=== PATIENT | male | born 1975 | race Caucasian/White ===

== ENCOUNTER → 2024-09-30 10:26 | Outpatient (BNVA) | payer OTHER, SELFPAY | PROVIDERS: Family Provider Electrodiagnostic Medicine; PCP Family Medicine; Visit Provider Family Medicine | DX: Z00.00 Encounter for general adult medical examination without abnormal findings (principal); Z12.5 Encounter for screening for malignant neoplasm of prostate; Z13.1 Encounter for screening for diabetes mellitus; E55.9 Vitamin D deficiency, unspecified; Z51.81 Encounter for therapeutic drug level monitoring; E03.9 Hypothyroidism, unspecified; Z13.6 Encounter for screening for cardiovascular disorders | CPT/HCPCS: 80053; 80061; 82306; 83036; 84153; 84439; 84443; 85025 ==

== ENCOUNTER 2024-12-09 05:53 | Day surgery (SDC) | payer OTHER, SELFPAY ==
[2024-12-09 06:10] VITALS: BP 100/66; PULSE 76; RESP 18; TEMP 36.1; O2SAT 96; BMI 32.5
--- NOTE | 2024-12-09 06:22 | W.PM.OPSFHP ---
Same Day Surgery H&P Indication for Procedure/HPI DATE OF PROCEDURE: December 09, 2024 CHIEF COMPLAINT/INDICATIONFOR SURGICAL PROCEDURE: need for screening colonoscopy PREOP DIAGNOSIS: need for screening colonoscopy PLANNED PROCEDURE: Operation Date: 12/09/24 07:00 Proposed Procedures p Colonoscopy [id number] G0121, Z12.11(Not Applicable) - Noah Grace MD Medications/Allergies* Home Medications ?Medication ?Instructions ?Recorded ?Confirmed ?Type fexofenadine 180 mg tablet 180 mg PO DAILY 09/30/24 12/06/24 History (Paola Allergy) cholecalciferol (vitamin D3) 10 10 mcg PO DAILY 10/26/24 12/06/24 History mcg (400 unit) capsule omega-3 fatty acids [Fish Oil] 300 mg PO DAILY 10/26/24 12/06/24 History magnesium 200 mg tablet 200 mg PO DAILY 12/06/24 12/06/24 History Allergies/Adverse Reactions Allergy/AdvReac Type Severity Reaction Status Date / Time gluten Allergy Severe Unknown Verified 10/26/24 10:05 Pertinent History/Comorbid Conditions* Surgical History (Updated 11/29/24 @ 18:55 by Byron King MD) Hx of removal of cyst Upper central abdomen - 2024 Family History (Updated 09/30/24 @ 10:00 by Byron King MD) Mother, of cancer 2 weeks after diagnosis. Unsure of initial cancer. Possibly uterine cancer. Diabetes mellitus, type 2 Father Prediabetes Brother Social History Smoking and tobacco/nicotine status: never used tobacco/nicotine Alcohol intake: current Alcohol intake frequency: 0-2 Drinks per Day Alcohol type: wine Substance/Drug Use: never Current occupation: Self employed - Janitorial service in [employer] Pertinent Exam Findings alert, oriented x 3, clear to auscultation bilaterally and regular rate & rhythm Recommendations Surgery/Procedure today Coding Level of Care Code Acute Code for Chg Fwd
--- NOTE | 2024-12-09 06:32 | ANES.PREANE2 ---
Pre-Anesthetic Assessment Height/Weight: Height 1.83 m Weight 108.862 kg Temp Pulse Resp BP Pulse Ox O2 Del Method 97 F L 76 18 100/66 96 Room Air 12/09/24 06:10 12/09/24 06:10 12/09/24 06:10 12/09/24 06:10 12/09/24 06:10 12/09/24 06:10 Preop Diagnosis: need for screening colonoscopy Operation Date: 12/09/24 07:00 Proposed Procedures p Colonoscopy [id number] G0121, Z12.11(Not Applicable) - Noah Grace MD Familial anesthetic complications: Never had anesthesia, no known family complications Was Beta Yung taken within 24 hours: N/A Was Clonidine taken within 24 hours: N/A Last intake: Intake Last Liquid Date 12/08/24 Last Liquid Time 21:00 Last Solid Date 12/07/24 Last Solid Time 20:00 Social Alcohol (Social) and No tobacco Exam alert, oriented x 3, clear to auscultation bilaterally and regular rate & rhythm Airway Submandibular: within normal limits Cervical ROM: within normal limits Mallampati: Class II Dentition: full History/ROS No significant history except as noted and No significant complaints Pulmonary None reported CV/HEM None reported None reported Hx kidney stones Hepatic None reported GI Gastroesophageal Reflux Disease (Occ., nothing this morning) and Peptic Ulcer Disease (Found in the , no issues since) Metabolic None reported Musc/skel None reported Neuropsych None reported Anesthetic Plan ASA status: 2 Anesthesia: Anesthesia Evaluation Other: No blood Risk of > 500 ml blood loss (7ml/kg in children): No Medications/Allergies Home Medications ?Medication ?Instructions ?Recorded ?Confirmed ?Last Taken ?Type fexofenadine 180 mg tablet 180 mg PO DAILY 09/30/24 12/06/24 12/08/24 History (Paola Allergy) cholecalciferol (vitamin D3) 10 10 mcg PO DAILY 10/26/24 12/06/24 12/08/24 History mcg (400 unit) capsule omega-3 fatty acids [Fish Oil] 300 mg PO DAILY 10/26/24 12/06/24 12/08/24 History magnesium 200 mg tablet 200 mg PO DAILY 12/06/24 12/06/24 12/08/24 History Allergies Allergy/AdvReac Type Severity Reaction Status Date / Time gluten Allergy Severe Unknown Verified 10/26/24 10:05 Current Medications Generic Name Dose Route Start Last Admin Trade Name Jessa PRN Reason Stop Dose Admin Sodium Chloride 1,000 mls @ 30 mls/hr 12/09/24 06:00 12/09/24 06:23 Sodium Chloride 0.9% IV 12/10/24 05:59 30 mls/hr .Q24H MERCEDES Administration PFSH Anesthesia Surgical History (Updated 11/29/24 @ 18:55 by Byron King MD) Hx of removal of cyst Upper central abdomen - 2024 Family History Father Diabetes mellitus, type 2 Brother Prediabetes Mother , of cancer 2 weeks after diagnosis. Unsure of initial cancer. Possibly uterine cancer. No problems noted. Social History Smoking and tobacco/nicotine status: never used tobacco/nicotine Alcohol intake: current Alcohol intake frequency: 0-2 Drinks per Day Alcohol type: wine Substance/Drug Use: never Current occupation: Self employed - Janitorial service in [employer]
--- NOTE | 2024-12-09 07:08 | PC.NURSE ---
[facility] [id number]
[2024-12-09 07:28] VITALS: BP 113/74; PULSE 70; RESP 16; TEMP 36.1; O2SAT 94
[2024-12-09 07:50] VITALS: PULSE 74; RESP 17; TEMP 36.1; O2SAT 97
--- NOTE | 2024-12-09 08:00 | ANE.PACU2 ---
Inpatient post-anesthesia follow up: Airway intact: Yes Vital signs: Temperature 97 F Pulse Rate 74 Respiratory Rate 17 Blood Pressure 113/74 Pulse Oximetry 97 Oxygen Delivery Me thod Room Air Oxygen Flow Rate Fraction of Inspir ed Oxygen Hydration adequate: Yes Nausea and vomiting: No Pain level: 1 Mental status: Baseline
== END 2024-12-09 08:00 | disposition home or self-care (01) ==
PROVIDERS: PCP Family Medicine; Visit Provider Surgery
PROC: 0DJD8ZZ Inspection of Lower Intestinal Tract, Via Natural or Artificial Opening Endoscopic (ICD-10-PCS; CPT 45378; principal; 2024-12-09 07:00)
DX: Z12.11 Encounter for screening for malignant neoplasm of colon (principal); K57.30 Diverticulosis of large intestine without perforation or abscess without bleeding; K62.1 Rectal polyp; K21.9 Gastro-esophageal reflux disease without esophagitis; K27.9 Peptic ulcer, site unspecified, unspecified as acute or chronic, without hemorrhage or perforation
CPT/HCPCS: 45380; 88305; J2704; J7030

== ENCOUNTER 2025-01-24 05:46 | Day surgery (SDC) | payer OTHER, SELFPAY ==
[2025-01-24] VITALS (12 sets, daily range): BP systolic 107–152; BP diastolic 66–88; PULSE 69–98; RESP 12–19; TEMP 36.1–36.3; O2SAT 94–99; BMI 32.1
--- NOTE | 2025-01-24 06:46 | W.PM.OPSFHP ---
Same Day Surgery H&P Indication for Procedure/HPI DATE OF PROCEDURE: January 24, 2025 CHIEF COMPLAINT/INDICATIONFOR SURGICAL PROCEDURE: Posterior neck cyst PREOP DIAGNOSIS: neck cyst PLANNED PROCEDURE: Operation Date: 01/24/25 07:00 Proposed Procedures p Excision Subcutaneous Neck Mass 04850 L72.3(Left) - Noah Grace MD Medications/Allergies* Home Medications ?Medication ?Instructions ?Recorded ?Confirmed ?Type fexofenadine 180 mg tablet 180 mg PO DAILY 09/30/24 01/24/25 History (Paola Allergy) cholecalciferol (vitamin D3) 10 10 mcg PO DAILY 10/26/24 01/24/25 History mcg (400 unit) capsule omega-3 fatty acids [Fish Oil] 300 mg PO DAILY 10/26/24 01/24/25 History magnesium 200 mg tablet 200 mg PO DAILY 12/06/24 01/24/25 History creatine monohydrate 1 ea PO PRN 01/20/25 01/24/25 History Allergies/Adverse Reactions Allergy/AdvReac Type Severity Reaction Status Date / Time gluten Allergy Severe Unknown Verified 01/24/25 06:06 Current Medications: Generic Name Dose Route Start Last Admin Trade Name Freq PRN Reason Stop Dose Admin Sodium Chloride 1,000 mls @ 30 mls/hr 01/24/25 06:15 01/24/25 06:16 Sodium Chloride 0.9% IV 01/25/25 06:14 30 mls/hr .Q24H MERCEDES Administration Pertinent History/Comorbid Conditions* Surgical History (Updated 11/29/24 @ 18:55 by Byron iKng MD) Hx of removal of cyst Upper central abdomen - 2024 Family History (Updated 09/30/24 @ 10:00 by Byron King MD) Mother, of cancer 2 weeks after diagnosis. Unsure of initial cancer. Possibly uterine cancer. 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 after discussion with patient he wants to proceed with excision to prevent further episodes of infection. Coding Level of Care Code Acute Code for Chg Fwcatarina
--- NOTE | 2025-01-24 06:59 | ANES.PREANE2 ---
Pre-Anesthetic Assessment Height/Weight: Height 1.83 m Weight 107.501 kg Temp Pulse Resp BP Pulse Ox O2 Del Method 97.3 F L 69 18 126/78 95 Room Air 01/24/25 06:07 01/24/25 06:07 01/24/25 06:07 01/24/25 06:07 01/24/25 06:07 01/24/25 06:07 Preop Diagnosis: neck cyst Operation Date: 01/24/25 07:00 Proposed Procedures p Excision Subcutaneous Neck Mass 74284 L72.3(Left) - Noah Grace MD Familial anesthetic complications: None Was Beta Yung taken within 24 hours: N/A Was Clonidine taken within 24 hours: N/A Last intake: Intake Last Liquid Date 01/23/25 Last Liquid Time 21:00 Last Solid Date 01/23/25 Last Solid Time 20:00 Social No alcohol and No tobacco Exam alert, oriented x 3, clear to auscultation bilaterally and regular rate & rhythm Airway Mallampati: Class II Dentition: full Anesthetic Plan ASA status: 1 Anesthesia: Choice Risk of > 500 ml blood loss (7ml/kg in children): No Medications/Allergies Home Medications ?Medication ?Instructions ?Recorded ?Confirmed ?Last Taken ?Type fexofenadine 180 mg tablet 180 mg PO DAILY 09/30/24 01/24/25 01/23/25 History (Paola Allergy) cholecalciferol (vitamin D3) 10 10 mcg PO DAILY 10/26/24 01/24/25 01/23/25 History mcg (400 unit) capsule omega-3 fatty acids [Fish Oil] 300 mg PO DAILY 10/26/24 01/24/25 01/23/25 History magnesium 200 mg tablet 200 mg PO DAILY 12/06/24 01/24/25 01/23/25 History creatine monohydrate 1 ea PO PRN 01/20/25 01/24/25 Unknown History Allergies Allergy/AdvReac Type Severity Reaction Status Date / Time gluten Allergy Severe Unknown Verified 01/24/25 06:06 Current Medications Generic Name Dose Route Start Last Admin Trade Name Freq PRN Reason Stop Dose Admin Sodium Chloride 1,000 mls @ 30 mls/hr 01/24/25 06:15 01/24/25 06:16 Sodium Chloride 0.9% IV 01/25/25 06:14 30 mls/hr .Q24H MERCEDES Administration PFSH Anesthesia Surgical History Hx of removal of cyst Upper central abdomen - 2024 Family History Father Diabetes mellitus, type 2 Brother Prediabetes Mother , of cancer 2 weeks after diagnosis. Unsure of initial cancer. Possibly uterine cancer. No problems noted. Social History Smoking and tobacco/nicotine status: never used tobacco/nicotine Alcohol intake: current Alcohol intake frequency: 0-2 Drinks per Day Alcohol type: wine Substance/Drug Use: never Current occupation: Self employed - Janitorial service in [employer]
[2025-01-24] MEDS: ceFAZolin 2,000 mg SDV 2000 MG IVP (07:15)
[2025-01-24] MEDS: lidocaine-epi 1% PF 1:200,000 30 mL SDV INJECTION (07:28)
[2025-01-24] MEDS: BUPivacaine 0.25% INJ 30 mL INJECTION (07:28)
--- NOTE | 2025-01-24 08:01 | P.OP_ITS ---
Operative Report Date of procedure: January 24, 2025 Pre-op diagnosis: Sebaceous cyst of the neck Post-op diagnosis: Same Post-op findings: There was a sebaceous cyst of the neck measuring 2 x 1 cm Procedure done: Excision of posterior neck lesion measuring 2 x 1 cm Specimens removed/disposition: Pathology Surgeon: Noah Grace MD Traveling Repair Accountant: GORDY OR Staff Estimated blood loss: 5 Brief History: 49-year-old male with a cyst of the posterior neck that had a recent infection. He presented to my office for excision. After discussion of all risk benefits with side to proceed. Procedure: Patient was brought into the OR, he was placed in a prone position after general anesthesia was given. The neck was prepped and draped in usual sterile fashion and a timeout was conducted. A 2.5 cm elliptical incision was made encompassing the area of cyst. With the help of a 15 blade I was able to circumferentially dissect the lesion from the surrounding tissue. This tissue was completely excised and passed to scrub table to be sent to pathology. Hemostasis was achieved with electrocautery, no evidence of residual tissue was noted. The wound was irrigated. The wound was closed in layers with #3-0 Vicryl for the subcutaneous tissue #4 Monocryl for the skin and Dermabond was applied. At the end of the procedure all counts were correct the patient tolerated well the procedure was transferred to PACU in stable condition.
[2025-01-24] MEDS: HYDROcodone-acetaminophen 5-325 mg Tablet 1 TAB PO (09:30)
--- NOTE | 2025-01-24 09:40 | ANE.PACU2 ---
Inpatient post-anesthesia follow up: Airway intact: Yes Vital signs: Temperature 97.0 F Pulse Rate 84 Respiratory Rate 17 Blood Pressure 121/66 Pulse Oximetry 96 Oxygen Delivery Me thod Room Air Oxygen Flow Rate 8 Fraction of Inspir ed Oxygen Hydration adequate: Yes Nausea and vomiting: No Pain level: 1 Mental status: Baseline
== END 2025-01-24 09:42 | disposition home or self-care (01) ==
PROVIDERS: PCP Family Medicine; Visit Provider Surgery
PROC: (CPT 11422; principal; 2025-01-24 07:00)
DX: L72.3 Sebaceous cyst (principal); Z80.9 Family history of malignant neoplasm, unspecified
CPT/HCPCS: 11422; 12041; 88304; J0690; J1100; J2250; J2405; J2704; J3010; J3490; J7030; J9999